=== PATIENT | male | born 1970 | race Caucasian/White ===

== ENCOUNTER 2018-02-15 21:56 | Emergency (ER) | payer OTHER ==
[~2018-02-15] VITALS: Ht 172.7 cm; Wt 139.9 kg
[~2018-02-15 21:56] MED LIST: MOTRIN800 MG PO; PERCOCET 5/31 TABLET PO; VALIUM5 MG PO; ZOFRAN4 MG PO
[2018-02-16] MEDS ORDERED: MOTRIN800 MG PO (01:31)
[2018-02-16] MEDS ORDERED: VALIUM5 MG PO (01:31)
[2018-02-16 01:58] VITALS: BP 132/88
== END 2018-02-16 02:00 | disposition home or self-care (01) ==
LOC: EME 21:56
DX: S46.811A Strain of other muscles, fascia and tendons at shoulder and upper arm level, right arm, initial encounter (principal); Y93.F9 Activity, other caregiving; Y99.0 Civilian activity done for income or pay; Z88.5 Allergy status to narcotic agent
CPT/HCPCS: 73030; 99281; 99284